=== PATIENT | male | born 1980 | race Caucasian/White ===

== ENCOUNTER → 2019-11-03 14:54 | Outpatient (BNVA) | payer BC, SELFPAY | PROVIDERS: PCP Nurse Practitioner; Referring Provider Nurse Practitioner; Visit Provider Specialist | DX: R20.0 Anesthesia of skin (principal); R20.2 Paresthesia of skin | CPT/HCPCS: 95816; 95908 ==

== ENCOUNTER → 2019-11-24 12:56 | Outpatient (BNVA) | payer BC, SELFPAY | PROVIDERS: PCP Nurse Practitioner; Visit Provider Licensed Practical Nurse | DX: M54.2 Cervicalgia (principal); G89.29 Other chronic pain; R20.0 Anesthesia of skin; R20.2 Paresthesia of skin; F17.210 Nicotine dependence, cigarettes, uncomplicated | CPT/HCPCS: 99204 ==

== ENCOUNTER 2019-12-24 08:36 | Outpatient (CLI) | payer BC, SELFPAY ==
--- NOTE | 2019-12-24 11:10 | MR_ITS ---
WS: [id number] MRI CERVICAL SPINE HISTORY: NUMBNESS AND TINGLING COMPARISON: None available. Mild straightening of the normal cervical lordosis. Small amount of marrow edema in the C5 vertebral body. No fractures or loss of height. There is a small amount of edema in the interspinous muscles lemus rrounding the C5 spinous process. Signal within the cervical cord is normal. Visualized posterior fossa is unremarkable. Craniocervical junction, C1 and C2 relationship, odontoid process and soft tissues are normal. C2-C3: Normal. C3-C4: Normal. C4-C5: Small foraminal osteophytes without stenosis. Very mild narrowing of the RIGHT foramen. C5-C6: Significant osteophytic ridging and annular disc bulging. There is an additional moderate size d LEFT foraminal disc osteophyte with significant compression and displacement of the exiting nerve r oots. Disc osteophyte complex causing mild central stenosis with moderate LEFT foraminal stenosis. On ly mild narrowing of the RIGHT foramen. C6-C7: Normal. C7-T1: Normal. No cervical chain adenopathy. MR/MR cervical spin wo con* [id number] IMPRESSION: 1. Moderate-sized LEFT foraminal disc osteophyte protrusion at C5-6 with signi ficant encroachment and narrowing of the foramen. Disc osteophyte disease resul ting in mild central and moderate LEFT foraminal stenosis. 2. Interspinous muscle edema surrounding the C5 spinous process.
== END 2019-12-24 08:37 | disposition home or self-care (01) ==
LOC: RADSHAW 08:52
PROVIDERS: PCP Nurse Practitioner; Visit Provider Licensed Practical Nurse
DX: M54.2 Cervicalgia (principal); R20.0 Anesthesia of skin; R20.2 Paresthesia of skin; M25.78 Osteophyte, vertebrae
CPT/HCPCS: 72141; 99214

== ENCOUNTER 2019-12-24 10:35 | Outpatient (CLI) | payer BC, SELFPAY ==
--- NOTE | 2019-12-24 10:49 | XR_ITS ---
WS: [id number] Lateral views of cervical spine in the flexion, extension and neutral positions. 12/24/2019 Clinical Data: CERVICAIGIA Comparison: None. Findings: There is anterior osteophyte formation at the C6 and C7 vertebral bodies. The osteophytes are bridged by calcification of the anterior longitudinal ligament. There is also minimal calcification of the a nterior longitudinal ligament at C5-C6. No compression fractures are seen. On flexion and extension there is no limitation of motion or subluxation. XR/XR cervical spine fl/ex [id number] Impression: 1. Negative for limitation of motion or subluxation on flexion or extension. 2. Anterior osteophyte formation with bridging at C6-C7.
== END 2019-12-24 10:36 | disposition home or self-care (01) ==
LOC: RAD 10:38
PROVIDERS: PCP Nurse Practitioner; Visit Provider Licensed Practical Nurse
DX: M54.2 Cervicalgia (principal); M25.78 Osteophyte, vertebrae
CPT/HCPCS: 72040

== ENCOUNTER 2020-01-06 06:00 | Outpatient (RCR) | payer BC, SELFPAY | END 2020-01-23 23:59 | disposition home or self-care (01) | LOC: GPT 06:00 | PROVIDERS: PCP Nurse Practitioner; Referring Provider Licensed Practical Nurse; Visit Provider Licensed Practical Nurse | DX: M50.020 Cervical disc disorder with myelopathy, mid-cervical region, unspecified level (principal) | CPT/HCPCS: 97110; 97140; 97161; 97530 ==

== ENCOUNTER 2020-01-24 06:00 | Outpatient (RCR) | payer BC, SELFPAY | END 2020-02-22 23:59 | disposition home or self-care (01) | LOC: GPT 06:00 | PROVIDERS: PCP Nurse Practitioner; Referring Provider Licensed Practical Nurse; Visit Provider Licensed Practical Nurse | DX: M50.020 Cervical disc disorder with myelopathy, mid-cervical region, unspecified level (principal) | CPT/HCPCS: 97110; 97140; 97530 ==

== ENCOUNTER 2020-02-23 06:00 | Outpatient (RCR) | payer BC, SELFPAY | END 2020-03-24 23:59 | disposition home or self-care (01) | LOC: GPT 06:00 | PROVIDERS: PCP Nurse Practitioner; Referring Provider Licensed Practical Nurse; Visit Provider Licensed Practical Nurse | DX: M50.020 Cervical disc disorder with myelopathy, mid-cervical region, unspecified level (principal) | CPT/HCPCS: 97110 ==

== ENCOUNTER → 2021-11-06 13:09 | Outpatient (BNVA) | payer OTHER, MEDICAID, SELFPAY | PROVIDERS: PCP Nurse Practitioner; Referring Provider Nurse Practitioner; Visit Provider Student in an Organized Health Care Education/Training Program | DX: M25.851 Other specified joint disorders, right hip (principal); M25.852 Other specified joint disorders, left hip | CPT/HCPCS: 99203 ==

== ENCOUNTER → 2021-11-06 13:16 | Outpatient (BNVA) | payer OTHER, MEDICAID, SELFPAY | PROVIDERS: PCP Nurse Practitioner; Referring Provider Nurse Practitioner; Visit Provider Student in an Organized Health Care Education/Training Program | DX: M25.551 Pain in right hip (principal); M25.552 Pain in left hip | CPT/HCPCS: 73523 ==

== ENCOUNTER → 2022-04-03 10:09 | Outpatient (BNVA) | payer MEDICAID, SELFPAY | PROVIDERS: PCP Nurse Practitioner; Referring Provider Nurse Practitioner; Visit Provider Orthopaedic Surgery | DX: M50.020 Cervical disc disorder with myelopathy, mid-cervical region, unspecified level (principal); M96.0 Pseudarthrosis after fusion or arthrodesis; Z98.1 Arthrodesis status | CPT/HCPCS: 72050; 72110 ==

== ENCOUNTER 2022-04-25 15:08 | Outpatient (CLI) | payer MEDICAID, SELFPAY ==
--- NOTE | 2022-04-25 15:30 | CT_ITS ---
WS: [id number] CT THORACIC SPINE HISTORY: back pain TECHNIQUE: Contiguous 2.5 mm axial images are reviewed to thoracic spine. Images are reformatted in s agittal and coronal planes. All CT scans at [facility] use at least one of these dose optimiz ation techniques: automated exposure control; mA and/or kV adjustment per patient size (includes targ eted exams where dose is matched to clinical indication); or iterative reconstruction. DLP: 631.71 mGy.cm COMPARISON: Cervical spine radiographs 04/03/2022 and lumbar spine series 04/03/2022. Anterior wedging of one of the lower thoracic vertebral bodies. Numbering related to the rib-bearing vertebral bodies beginning at T1 suggests this is T12. Described as T11 on prior studies. Nevertheles s, this is the vertebral body which demonstrates mild anterior wedging by 10%. Posterior fusion thora columbar junction stabilizes this vertebral body. Posterior laminectomy defect. No additional fractur es. The hardware appears intact. Soft tissue changes appear appropriate at the surgical site. No air collections or fluid. Hyperdense nodules are identified on the LEFT kidney. These are probably hemorrhagic cysts. CT/CT thoracic spin wo con* [id number] IMPRESSION: Postoperative changes across the thoracolumbar junction appear appropriate. No hardware fracture or lucency. Lower thoracic vertebral body fracture is approxi mately 10% with no retropulsion.
== END 2022-04-25 15:09 | disposition home or self-care (01) ==
LOC: RAD 15:08
PROVIDERS: PCP Nurse Practitioner; Visit Provider Orthopaedic Surgery
DX: Z98.890 Other specified postprocedural states (principal)
CPT/HCPCS: 72128

== ENCOUNTER 2022-05-17 11:38 | Outpatient (CLI) | payer MEDICAID, SELFPAY ==
--- NOTE | 2022-05-17 11:45 | MR_ITS ---
WS: [id number] MRI CERVICAL SPINE NONCONTRAST HISTORY: Pain, prior cervical spine surgery. COMPARISON: MRI 12/24/2019. Technique: Multiplanar, multisequence noncontrast imaging of the cervical spine. Very mild increase in the cervical lordosis. Since the prior MRI patient has undergone an anterior ce rvical fusion from C5 to C7 with interbody spacers at C5-6 and C6-7. Less than 2 mm retrolisthesis of C4. No fractures or marrow edema. Signal within the cervical cord is normal. Visualized posterior fossa is unremarkable. Craniocervical junction, C1 and C2 relationship, odontoid process and soft tissues are normal. C2-C3: Normal. C3-C4: Mild osteophytic ridging with no stenosis. C4-C5: Mild osteophytic ridging, mild RIGHT foraminal stenosis. No central disc protrusion. C5-C6: Mild osteophytic ridging and foraminal osteophytes. Moderate bilateral foraminal stenosis. Heri nosis due to combination of disc and osteophyte and greater on the LEFT. C6-C7: Minimal facet arthritis. No high-grade stenosis. C7-T1: Normal. Paraspinal soft tissue are normal. MR/MR cervical spin wo con* [id number] IMPRESSION: 1. Prior anterior cervical fusion from C5 to C7 with interbody spacers appears intact. 2. Mild RIGHT foraminal stenosis at C4-5. 3. Moderate bilateral foraminal stenosis at C5-6. Probably due to combination of disc and osteophyte. Slightly greater narrowing on the LEFT.
== END 2022-05-17 11:39 | disposition home or self-care (01) ==
PROVIDERS: PCP Nurse Practitioner; Visit Provider Orthopaedic Surgery
DX: M50.020 Cervical disc disorder with myelopathy, mid-cervical region, unspecified level; Z98.890 Other specified postprocedural states; Z98.1 Arthrodesis status; M48.02 Spinal stenosis, cervical region
CPT/HCPCS: 72141

== ENCOUNTER 2023-04-12 14:39 | Emergency (ER) | payer MEDICAID, SELFPAY ==
[2023-04-12 14:43] VITALS: BP 145/86; PULSE 76; RESP 15; TEMP 36.8; O2SAT 99
--- NOTE | 2023-04-12 15:43 | XRR_ITS ---
PROCEDURE INFORMATION: Exam: XR Chest Exam date and time: 04/12/2023 4:21 PM Age: 42 years old Clinical indication: Chest wall pain; Additional info: Chest pain TECHNIQUE: Imaging protocol: Radiologic exam of the chest. Views: 1 view. COMPARISON: MR cervical spin wo con* [id number] 05/17/2022 12:09 PM FINDINGS: Lungs: Unremarkable. No consolidation. Pleural spaces: Unremarkable. No pleural effusion. No pneumothorax. Heart/Mediastinum: Unremarkable. No cardiomegaly. Bones/joints: Thoracolumbar spinal fusion hardware noted. ACDF hardware noted in the cervical spine. Visualized osseous structures are intact. XR/XR chest 1V portable [id number] IMPRESSION: No acute findings.
--- NOTE | 2023-04-12 15:44 | ED_ITS ---
Documented by User: JESSICA Woodruff 04/12/23 15:55 HPI - General Adult 2 General: Chief complaint: Back Pain/Injury Stated complaint: left shoulder,upper back,elevated hr Time Seen by Provider: 04/12/23 15:31 Source: patient Mode of arrival: ambulatory Limitations: no limitations History of Present Illness: Patient is a 42-year-old male who presents to ED today with multiple complaints. Patient tells me earlier today while driving home around noon today he began having pain in his left shoulder. He states the pain radiated down to about his elbow. No numbness or tingling to the extremity. Patient states he has had 3 or 4 similar episodes like this over the past week or so. He does have hardware to his neck. Patient also states that he began having pain between his shoulder blades and pain up into his right jaw. Patient states when he got home he took his blood pressure and heart rate and states his heart rate was bouncing up and down between mid 60s and mid 70s. He also states his blood pressure was 120s/80s which is very high for me stating his blood pressure normally runs 90s/70s. Patient states he was very concerned with his heart rate. His wanted him to come to the ED because she thought it was my heart . During my assessment he has no complaints of chest pain or shortness of breath. Vitals are stable upon arrival. Onset (ago): hour(s) Pain Consistency: intermittent Relieving factors: none Exacerbating factors: none Associated symptoms: Deny chest pain, dyspnea, headache(s), malaise, nausea, rash, palpitations, syncope or vomiting Treatments prior to arrival: aspirin Review of Systems 2 Const: Denies: fever(s), chills, body aches, fatigue or malaise Eyes: Denies: change in vision, blurry vision, photophobia, floaters or seeing flashes ENMT: Reports: other (jaw pain); Denies: throat pain, odynophagia, nasal discharge, nasal congestion or sinus pain Card: Denies: chest pain, palpitations, edema, swelling of feet/ankles, lightheadedness, syncope, pre-syncope, dyspnea on exertion, orthopnea, leg pain with exertion or acrocyanosis Resp: Denies: dyspnea, productive cough, non-productive cough or chest congestion GI: Denies: abdominal pain, nausea, vomiting or diarrhea : Denies: flank pain, difficulty urinating, dysuria, urinary frequency, urinary urgency or urinary hesitancy Musc: Reports: back pain and joint pain (L shoulder); Denies: neck pain, extremity pain, extremity swelling, joint swelling, joint redness, joint warmth or limited range of motion Skin/Breast: Denies: rash Neuro: Denies: headache(s), numbness in extremities, weakness in extremities, sensory changes or dizziness PFSH ED 2 PFSH: Medical History Psychiatric care 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 Surgical History History of lumbar surgery 2005 [facility] Family History Other Family history non-contributory Social History Smoking and tobacco/nicotine status: current some day tobacco/nicotine user Alcohol intake: current Alcohol intake frequency: holidays/special occasions only Substance/Drug Use: never Household members: significant other Marital status: Single Current occupational status: employed Current occupation: [employer] Physical Exam 2 Const: COMMON NORMALS: no acute distress, average body habitus, patient oriented x3, no limitations, healthy appearing, alert and well nourished G ENERAL APPEARANCE: cooperative ORIENTATION/CONSCIOUSNESS: Yes awake, Yes oriented to person, Yes oriented to place and Yes oriented to time HENMT: COMMON NORMALS: normocephalic and atraumatic HEAD & SCALP: normal to inspection, normocephalic and atraumatic FACE & SINUS: normal facial exam, sinuses nontender and face symmetric Eye: COMMON NORMALS: Equal, round and reactive pupils present and EOMs intact bilaterally GENERAL EYE: appearance normal, both eyes and all related structures and normal light reflex PUPIL: Yes Equal, round and reactive pupils present DIRECT OPHTHALMOSCOPY: Yes normal light reflex Neck/C-Spine: COMMON NORMALS: full ROM, no lymphadenopathy, supple and no meningeal signs GENERAL: Yes normal visual inspection Chest: COMMONS NORMALS: normal inspection of the chest and normal palpation of entire chest wall Resp: COMMON NORMALS: normal respiratory effort and clear to auscultation bilaterally AUSCULTATION: clear to auscultation bilaterally Cardio: COMMON NORMALS: regular rate and regular rhythm RATE: regular rate RHYTHM: regular rhythm GI: COMMON NORMALS: Normal to inspection, nondistended, normoactive bowel sounds present, Soft to palpation, non-tender, No hepatosplenomegaly present and no masses PALPATION: Yes Soft to palpation and Yes No hepatosplenomegaly present : COMMON NORMALS: Yes no CVA tenderness BLADDER/KIDNEY EXAM: Yes no CVA tenderness Back/Pelvis: COMMON NORMALS: no CVA tenderness and thoracic and lumbar spine normal to inspection Extremity: COMMON NORMALS: normal to inspection, full ROM, capillary refill normal, no joint enlargement, no clubbing, cyanosis or edema, no calf tenderness and no pedal edema GENERAL: Yes normal exam except as noted OTHER: sensation, pulses, cap refill to L UE normal; no swelling/edema or color changes appreciated Neuro: TUCKER COMA SCALE: document GCS findings Universal coma scale eye opening: Spontaneous Universal coma scale verbal response: Orientated Tucker coma scale motor response: Obey commands Universal coma scale total score: 15 COMMON NORMALS: patient oriented x3, CN's II-XII intact bilaterally, moves all extremities, no focal motor deficits, no sensory deficits noted and gait normal SENSORIUM/ORIENTATION: Yes alert, Yes oriented to person, Yes oriented to place and Yes oriented to time MENINGEAL SIGNS: Yes no meningeal signs M OTOR EXAM: 5/5 motor strength present throughout Skin: COMMON NORMALS: no rashes or lesions noted GENERAL SKIN EXAM: no rashes or lesions noted Course 2 Vital Signs: Vital signs: Vital Signs Temperature 98.2 F 04/12/23 14:43 Pulse Rate 59 L 04/12/23 17:34 Respiratory Rate 17 04/12/23 17:34 Blood Pressure 130/68 04/12/23 17:34 Pulse Oximetry 100 04/12/23 17:34 Oxygen Delivery Me thod Room Air 04/12/23 17:34 [facility] - General Adult Lab Data 04/12/23 16:43 04/12/23 16:43 Radiology Impressions Chest X-Ray 04/12/23 15:43 IMPRESSION: No acute findings. Laboratory Results WBC 7.86 10^3/uL (3.29-11.43) 04/12/23 16:43 RBC 4.13 10^6/uL (3.85-5.65) 04/12/23 16:43 Hgb 12.70 g/dL (11.27-16.99) 04/12/23 16:43 Hct 39.7 % (37-53) 04/12/23 16:43 MCV 96.1 fl (82-101) 04/12/23 16:43 MCH 30.8 pg (27-33) 04/12/23 16:43 MCHC 32.0 g/dL (30-55) 04/12/23 16:43 RDW 12.4 % (12.1-15.1) 04/12/23 16:43 Plt Count 212 10^3/cmm (157-399) 04/12/23 16:43 MPV 9.4 fL (7.4-10.4) 04/12/23 16:43 Neut % (Auto) 54.4 % 04/12/23 16:43 Lymph % (Auto) 32.6 % 04/12/23 16:43 Armstrong % (Auto) 9.7 % 04/12/23 16:43 Eos % (Auto) 2.5 % 04/12/23 16:43 Baso % (Auto) 0.5 % 04/12/23 16:43 Neut # (Auto) 4.28 10^3/uL (1.8-7.7) 04/12/23 16:43 Lymph # (Auto) 2.6 10^3/uL (0.8-4.8) 04/12/23 16:43 Armstrong # (Auto) 0.8 10^3/uL (0.2-0.9) 04/12/23 16:43 Eos # (Auto) 0.2 10^3/uL (0.0-0.8) 04/12/23 16:43 Baso # (Auto) 0.0 10^3/uL (0.0-0.1) 04/12/23 16:43 Nucleated RBC % (auto) 0 % 04/12/23 16:43 Nucleated RBCs # 0.0 /100WBC 04/12/23 16:43 Sodium 139 mmol/L (136-145) 04/12/23 16:43 Potassium 4.3 mmol/L (3.5-5.1) 04/12/23 16:43 Chloride 103 mmol/L (98-107) 04/12/23 16:43 Carbon Dioxide 26 mmol/L (22-29) 04/12/23 16:43 Anion Gap 14.3 (5-19) 04/12/23 16:43 BUN 15 mg/dL (6-20) 04/12/23 16:43 Creatinine 0.9 mg/dL (0.7-1.2) 04/12/23 16:43 GFR Calculation 93.0 mL/min (90-130) 04/12/23 16:43 Glucose 80 mg/dL (65-115) 04/12/23 16:43 Calculated Osmolality 288 mOsm/kg (285-295) 04/12/23 16:43 Calcium 9.4 mg/dL (8.5-10.5) 04/12/23 16:43 Total Bilirubin 0.3 mg/dL (0.15-1.2) 04/12/23 16:43 AST 25 U/L (0-40) 04/12/23 16:43 ALT 23 U/L (0-41) 04/12/23 16:43 Alkaline Phosphatase 58 U/L (40-130) 04/12/23 16:43 Troponin T Baseline < 6 ng/L (0-15) 04/12/23 16:43 Total Protein 7.3 g/dL (6.6-8.7) 04/12/23 16:43 Albumin 4.6 g/dL (3.5-5.2) 04/12/23 16:43 Globulin 2.7 g/dL (1.3-4.6) 04/12/23 16:43 Discharge Plan Discharge Patient Disposition: Home Clinical Impression: Chest pain Qualifiers: Chest pain type: unspecified Qualified Code(s): R07.9 - Chest pain, unspecified Condition: Stable Prescriptions: No Action fluoxetine 40 mg capsule 40 mg PO DAILY Qty: 30 4RF Discharge Orders: Discharge ED (Routine); Ordered 04/12/23 Ordered By: Cristel Pena Referrals: Bernabe Yang, [facility] [Primary Care Provider] - Discharge Diet: Usual diet Discharge Activity: Increase activity as tolerated Patient Instructions: Chest Pain - Noncardiac Activity Restrictions/Additional Instructions: Lab work showed no signs of any abnormalities. The cardiac evaluation obtained on you today revealed no acute concerns. Cardiac markers are all within normal limits and showed no concerns of any active cardiac involvement. Continue to monitor your symptoms at home. Be sure you are staying well-hydrated. I encourage you to call the nephrology office you have been referred to. The adrenal gland-the gland that sits right above the kidneys, if affected in any way can cause abnormal hormones in the body which can sometimes cause issues with blood pressure or heart rate. I encourage you to take this into account when you have your appointment with the specialist as they may be able to further evaluate the possibility of this correlation. Also, we recommend a follow-up appoint with your primary care doctor next week for general recheck. However, if you have symptoms of severe chest pains, sharp stabbing mid chest pain through into your back, episodes of passing out, pain associated with significant sweating or dizziness without ability to stand or walk you need to be seen and reevaluated back to the ER. Sign Out Sign Out Data: Patient Sign Out occurred on 04/12/23 at 17:01. Patient's care was discussed, and care was transferred from JESSICA Woodruff to JESSICA Puentes. 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 Surgical History History of lumbar surgery 2005 [facility] Family History Other Family history non-contributory Social History Smoking and tobacco/nicotine status: current some day tobacco/nicotine user Alcohol intake: current Alcohol intake frequency: holidays/special occasions only Substance/Drug Use: never Household members: significant other Marital status: Single Current occupational status: employed Current occupation: [employer] Physical Exam 2 Neuro: TUCKER COMA SCALE: document GCS findings Tucker coma scale total score: 15 Course 2 Vital Signs: Vital signs: Vital Signs Temperature 98.2 F 04/12/23 14:43 Pulse Rate 59 L 04/12/23 17:34 Respiratory Rate 17 04/12/23 17:34 Blood Pressure 130/68 04/12/23 17:34 Pulse Oximetry 100 04/12/23 17:34 Oxygen Delivery Me thod Room Air 04/12/23 17:34 MDM - General Adult Medical Decision Making Cristel Pena PA-C:Transfer of care at 1700 from Veronica Jean-Baptiste PA-C Patient evaluation here in the emergency department is benign. No acute findings of cardiac concern, infection, cardiomegaly, anemia, or electrolyte imbalance. Discussed all this with the patient. He informs me that he has some issues with his kidneys and is supposed to be seeing a engineering aid for biopsy in [place]. I asked if any of this involves his adrenal glands and he indicated he was not sure. We discussed the possibility that if the adrenal glands are involved it could be causing or at least playing a role in some of his symptoms. I encouraged him to make sure that the engineering aid knew of his recurrent chest and shoulder discomfort. Patient was given strict return precautions regarding signs and symptoms of OK or stroke. Patient verbalizes understanding and agreement to treatment plan. Differential Diagnosis DDx: OK, NSTEMI, palpitations, hypotension, hypertension, anemia, CHF, electrolyte imbalance Lab Data 04/12/23 16:43 04/12/23 16:43 Radiology Impressions Chest X-Ray 04/12/23 15:43 IMPRESSION: No acute findings. Laboratory Results WBC 7.86 10^3/uL (3.29-11.43) 04/12/23 16:43 RBC 4.13 10^6/uL (3.85-5.65) 04/12/23 16:43 Hgb 12.70 g/dL (11.27-16.99) 04/12/23 16:43 Hct 39.7 % (37-53) 04/12/23 16:43 MCV 96.1 fl (82-101) 04/12/23 16:43 MCH 30.8 pg (27-33) 04/12/23 16:43 MCHC 32.0 g/dL (30-55) 04/12/23 16:43 RDW 12.4 % (12.1-15.1) 04/12/23 16:43 Plt Count 212 10^3/cmm (157-399) 04/12/23 16:43 MPV 9.4 fL (7.4-10.4) 04/12/23 16:43 Neut % (Auto) 54.4 % 04/12/23 16:43 Lymph % (Auto) 32.6 % 04/12/23 16:43 Armstrong % (Auto) 9.7 % 04/12/23 16:43 Eos % (Auto) 2.5 % 04/12/23 16:43 Baso % (Auto) 0.5 % 04/12/23 16:43 Neut # (Auto) 4.28 10^3/uL (1.8-7.7) 04/12/23 16:43 Lymph # (Auto) 2.6 10^3/uL (0.8-4.8) 04/12/23 16:43 Armstrong # (Auto) 0.8 10^3/uL (0.2-0.9) 04/12/23 16:43 Eos # (Auto) 0.2 10^3/uL (0.0-0.8) 04/12/23 16:43 Baso # (Auto) 0.0 10^3/uL (0.0-0.1) 04/12/23 16:43 Nucleated RBC % (auto) 0 % 04/12/23 16:43 Nucleated RBCs # 0.0 /100WBC 04/12/23 16:43 Sodium 139 mmol/L (136-145) 04/12/23 16:43 Potassium 4.3 mmol/L (3.5-5.1) 04/12/23 16:43 Chloride 103 mmol/L (98-107) 04/12/23 16:43 Carbon Dioxide 26 mmol/L (22-29) 04/12/23 16:43 Anion Gap 14.3 (5-19) 04/12/23 16:43 BUN 15 mg/dL (6-20) 04/12/23 16:43 Creatinine 0.9 mg/dL (0.7-1.2) 04/12/23 16:43 GFR Calculation 93.0 mL/min (90-130) 04/12/23 16:43 Glucose 80 mg/dL (65-115) 04/12/23 16:43 Calculated Osmolality 288 mOsm/kg (285-295) 04/12/23 16:43 Calcium 9.4 mg/dL (8.5-10.5) 04/12/23 16:43 Total Bilirubin 0.3 mg/dL (0.15-1.2) 04/12/23 16:43 AST 25 U/L (0-40) 04/12/23 16:43 ALT 23 U/L (0-41) 04/12/23 16:43 Alkaline Phosphatase 58 U/L (40-130) 04/12/23 16:43 Troponin T Baseline < 6 ng/L (0-15) 04/12/23 16:43 Total Protein 7.3 g/dL (6.6-8.7) 04/12/23 16:43 Albumin 4.6 g/dL (3.5-5.2) 04/12/23 16:43 Globulin 2.7 g/dL (1.3-4.6) 04/12/23 16:43 All radiology interpretation(s) finalized by discharge Discharge Plan Discharge Patient Disposition: Home Clinical Impression: Chest pain Qualifiers: Chest pain type: unspecified Qualified Code(s): R07.9 - Chest pain, unspecified Condition: Stable Prescriptions: No Action fluoxetine 40 mg capsule 40 mg PO DAILY Qty: 30 4RF Discharge Orders: Discharge ED (Routine); Ordered 04/12/23 Ordered By: Cristel Pena Referrals: Bernabe Yang FNP [Primary Care Provider] - Discharge Diet: Usual diet Discharge Activity: Increase activity as tolerated Patient Instructions: Chest Pain - Noncardiac Activity Restrictions/Additional Instructions: Lab work showed no signs of any abnormalities. The cardiac evaluation obtained on you today revealed no acute concerns. Cardiac markers are all within normal limits and showed no concerns of any active cardiac involvement. Continue to monitor your symptoms at home. Be sure you are staying well-hydrated. I encourage you to call the nephrology office you have been referred to. The adrenal gland-the gland that sits right above the kidneys, if affected in any way can cause abnormal hormones in the body which can sometimes cause issues with blood pressure or heart rate. I encourage you to take this into account when you have your appointment with the specialist as they may be able to further evaluate the possibility of this correlation. Also, we recommend a follow-up appoint with your primary care doctor next week for general recheck. However, if you have symptoms of severe chest pains, sharp stabbing mid chest pain through into your back, episodes of passing out, pain associated with significant sweating or dizziness without ability to stand or walk you need to be seen and reevaluated back to the ER. Sign Out Sign Out Data: Patient Sign Out occurred on 04/12/23 at 17:01. Patient's care was discussed, and care was transferred from JESSICA Woodruff to JESSICA Puentes. Coding Level of Care Code ED Clinical Appeals Auditor for Tyrone Ojeda
--- NOTE | 2023-04-12 16:50 | ECG_ITS ---
[facility] Test Date: 2023-04-12 Pat Name: Antoine Pruitt Department: Room: Gender: Male Program Coordinator Executive Education: : 1980 Requested By: Veronica Jean-Baptiste Order Number: [id number] Christa MD: Kp Ling M.D. Measurements Intervals [place] Rate: 59 P: -7 IN: 142 QRS: 29 QRSD: 120 T: -5 QT: 419 QTc: 416 Interpretive Statements SINUS BRADYCARDIA POSSIBLE RIGHT VENTRICULAR CONDUCTION DELAY [RSR (QR) IN V1/V2] INFERIOR MYOCARDIAL INFARCTION , PROBABLY OLD [40+ ms Q WAVE AND/OR ST/T ABNORMALITY IN II/aVF] INTERPRETATION BASED ON A DEFAULT AGE OF 40 YEARS No previous ECG available for comparison Electronically Signed On 04-13-2023 6:07:04 [employer] by Kp Ling M.D. [email or web address]
[2023-04-12 16:53] VITALS: BP 128/82; PULSE 60; RESP 14; O2SAT 99
[2023-04-12 17:10] LABS: Basophils % 0.5 %; Eosinophils # 0.2 10^3/uL (0.0-0.8); Eosinophils % 2.5 %; Hematocrit 39.7 % (37-53); Lymphocytes # 2.6 10^3/uL (0.8-4.8); Lymphocytes % 32.6 %; Mean Corpuscular Hemoglobin 30.8 pg (27-33); Mean Corpuscular Volume 96.1 fl (82-101); Mean Platelet Volume 9.4 fL (7.4-10.4); Monocytes # 0.8 10^3/uL (0.2-0.9); Monocytes % 9.7 %; Neutrophils # 4.28 10^3/uL (1.8-7.7); Neutrophils % 54.4 %; Nucleated Red Blood Cells % 0 %; Platelet Count 212 10^3/cmm (157-399); Red Blood Count 4.13 10^6/uL (3.85-5.65); Red Cell Distribution Width 12.4 % (12.1-15.1); White Blood Count 7.86 10^3/uL (3.29-11.43)
[2023-04-12 17:34] VITALS: BP 130/68; PULSE 59; RESP 17; O2SAT 100
[2023-04-12 17:41] LABS: Troponin(5th) Baseline < 6 ng/L (0-15)
[2023-04-12 17:45] LABS: Alanine Aminotransferase 23 U/L (0-41); Albumin Level 4.6 g/dL (3.5-5.2); Alkaline Phosphatase 58 U/L (40-130); Aspartate Amino Transferase 25 U/L (0-40); Blood Urea Nitrogen 15 mg/dL (6-20); Calcium 9.4 mg/dL (8.5-10.5); Carbon Dioxide 26 mmol/L (22-29); Chloride 103 mmol/L (98-107); Creatinine Clr Calc Pharmacy 120.3651; Globulin 2.7 g/dL (1.3-4.6); Glucose 80 mg/dL (65-115); Osmolality Calculated 288 mOsm/kg (285-295); Sodium 139 mmol/L (136-145); Total Bilirubin 0.3 mg/dL (0.15-1.2); Total Protein 7.3 g/dL (6.6-8.7)
[2023-04-12 18:03] LABS: Anion Gap 14.3 (5-19); Potassium 4.3 mmol/L (3.5-5.1)
[2023-04-12 18:47] VITALS: BP 116/72; PULSE 60; O2SAT 99
== END 2023-04-12 18:48 | disposition home or self-care (01) ==
PROVIDERS: Physician Assistant; Emergency Provider Physician Assistant; PCP Nurse Practitioner
DX: R07.9 Chest pain, unspecified (principal); Z72.0 Tobacco use
CPT/HCPCS: 36415; 71045; 80053; 84484; 85025; 93005; 99285